=== PATIENT | male | born 1965 | race Caucasian/White ===

== ENCOUNTER 2019-04-22 13:47 | Emergency (ER) | payer OTHER ==
[2019-04-22] MEDS ORDERED: Ketorolac Tromethamine 30 MG/ML VIAL ONE (14:21)
[2019-04-22] MEDS ORDERED: Cyclobenzaprine 10 MG TAB ONE (14:21)
--- NOTE | 2019-04-22 14:57 | CT ---
CT cervical spine noncontrast HISTORY: Neck injury. FINDINGS: Vertebral body heights and alignment are maintained. Osteophytosis throughout the vertebral bodies and facets. Mild disc bulges. Cervicothoracic junction is intact. No acute fracture or dislocation. IMPRESSION: Mild degenerative changes cervical spine. No acute osseous abnormalities are demonstrated .
== END 2019-04-22 15:34 | disposition home or self-care (01) ==
LOC: MADERS 13:47
DX: S16.1XXA Strain of muscle, fascia and tendon at neck level, initial encounter (principal); M19.90 Unspecified osteoarthritis, unspecified site; E03.9 Hypothyroidism, unspecified; J45.909 Unspecified asthma, uncomplicated; F43.10 Post-traumatic stress disorder, unspecified; Z79.899 Other long term (current) drug therapy; V89.2XXA Person injured in unspecified motor-vehicle accident, traffic, initial encounter
CPT/HCPCS: 72125; 96374; G0390; J1885